=== PATIENT | female | born 1990 | race Caucasian/White ===

== ENCOUNTER 2017-12-30 18:05 | Emergency (ER) | payer OTHER ==
[~2017-12-30] VITALS: Ht 153.6 cm; Wt 49.0 kg
== END 2017-12-30 19:21 | disposition left against medical advice (07) ==
LOC: ED 18:05
DX: S80.211A Abrasion, right knee, initial encounter (principal); M79.642 Pain in left hand; Z88.1 Allergy status to other antibiotic agents; W01.0XXA Fall on same level from slipping, tripping and stumbling without subsequent striking against object, initial encounter; Y93.89 Activity, other specified; Y92.89 Other specified places as the place of occurrence of the external cause; Y99.9 Unspecified external cause status